=== PATIENT | female | born 2000 | race Caucasian/White ===

== ENCOUNTER 2021-03-11 17:52 | Emergency (ER) | payer SELFPAY ==
[~2021-03-11] VITALS: Ht 170.2 cm; Wt 90.9 kg
[2021-03-11] MEDS ORDERED: KETOROLAC 60 MG/2 ML VIAL. IM ONE (19:00)
--- NOTE | 2021-03-11 20:22 | RAD ---
XR EXAM OF ANKLE_LEFT 3V, XR LT TIBIA + FIBULA 03/11/2021 7:42 PM INDICATION: Fall with bilateral swelling and pain COMPARISON: None available. TECHNIQUE: 3 views of the left ankle and 2 views of the left tibia and fibula are provided. FINDINGS/ IMPRESSION: Extensive lateral ankle soft tissue swelling. There is no acute fracture or dislocation. Joint spaces are maintained. Bone mineralization is within normal limits. There is no soft tissue gas or osseous erosion. No radiopaque foreign body. Electronically signed by: Julia Agustin MD (03/11/2021 8:20 PM) [facility]
--- NOTE | 2021-03-11 20:32 | PHYS DOC ---
Past Medical History Past Surgical History: No Surgical History Smoking Status: Current Every Day Smoker Additional Information: VAPES Alcohol Use: Rarely General Adult EDM: Chief Complaint: ANKLE PROBLEM HPI: HPI: Patient is a 20 year old female who presents with left ankle injury. Patient rates her pain 10/10 nonradiating. She states she was walking on the stairs, when she lost her footing and heard her ankle "crack." Patient has never injured the ankle previously. She was unable to ambulate after the injury. Patient denies head trauma, loss of consciousness, any other injury. Review of Systems: Review of Systems: ROS negative except as mentioned in HPI. Heart Score: C/O Chest Pain: No Current Medications: Current Medications Medications (Trade) Dose Ordered Sig/Donis Start Time Stop Time Status Last Admin Dose Admin Ketorolac Tromethamine (Toradol Im) 60 mg 1X ONCE 03/11/21 19:00 03/11/21 19:01 DC 03/11/21 18:38 60 MG Allergies: Allergies: Allergies Coded Allergies Type Severity Reaction Last Updated Verified No Known Drug Allergies 03/11/21 No Physical Exam: PE: Constitutional: Well developed, well nourished, no acute distress, non-toxic appearance. HENT: Normocephalic, atraumatic, bilateral external ears normal, oropharynx moist, no oral exudates, nose without deformity or discharge. Eyes: PERRLA, EOMI, conjunctiva normal, no discharge. Neck: Normal range of motion, no step-offs, no midline tenderness. Cardiovascular: Heart rate regular rhythm, no murmur. Lungs & Thorax: Bilateral breath sounds clear to auscultation. Skin: Warm, dry, no erythema, no rash, no abrasion, no laceration. Back: No step-offs, no midline tenderness, no CVA tenderness. Extremities: Left ankle with significant lateral malleolar swelling and ecchymosis, neurovascular intact, active and passive range of motion limited secondary to pain. Extremities otherwise no tenderness, no cyanosis, no clubbing, ROM intact, no edema. Neurologic: Alert and oriented x4, no focal deficits noted. Current Patient Data: Labs: Laboratory Tests Test 03/11/21 19:19 POC Urine HCG, Qualitative Hcg negative (Negative) Vital Signs: Vital Signs Date Time Temp Pulse Resp B/P (MAP) Pulse Ox O2 Delivery O2 Flow Rate FiO2 03/11/21 17:56 98.8 110 20 122/85 (97) 96 Room Air 98.8 2031: HR 96 on monitor. Radiology/Procedures: Radiology/Procedures: XR EXAM OF ANKLE_LEFT 3V, XR LT TIBIA + FIBULA 03/11/2021 7:42 PM INDICATION: Fall with bilateral swelling and pain COMPARISON: None available. TECHNIQUE: 3 views of the left ankle and 2 views of the left tibia and fibula are provided. FINDINGS/ IMPRESSION: Extensive lateral ankle soft tissue swelling. There is no acute fracture or dislocation. Joint spaces are maintained. Bone mineralization is within normal limits. There is no soft tissue gas or osseous erosion. No radiopaque foreign body. Electronically signed by: Julia Agustin MD (03/11/2021 8:20 PM) [facility] Course & Med Decision Making: Course & Med Decision Making Pertinent Labs and Imaging studies reviewed. (See chart for details) Using [place] ankle rule, x-ray images ordered to evaluate for fracture or dislocation. No fracture or dislocation are seen on plain films at this time. Patient will be placed in a walking boot and given contact information for orthopedic follow- up. Patient understands and is agreeable to discharge plan. Dragon Disclaimer: Lindsey Shell Disclaimer: This electronic medical record was generated, in whole or in part, using a voice recognition dictation system. Departure Departure Impression: Primary Impression: Sprain of unspecified ligament of left ankle, initial encounter Disposition: HOME / SELF CARE / HOMELESS Condition: STABLE Referrals: NO PCP (PCP) NICOLE LIEBERMAN DPMohit Patient Instructions: Ankle Sprain, [id number], RICE - Routine Care for Injuries, [id number] Additional Instructions: You may take a maximum of 800mg ibuprofen every 6 hours as needed for pain and inflammation. If this is inadequate, you may alternate between up to 800mg ibuprofen and 650mg acetaminophen every 4 hours. You can make an appointment with Dr. Lieberman for further evaluation and management if your pain does not improve. Please return to the emergency department if your symptoms worsen, you develop new symptoms or your pain is not controlled at home. JESSIKA MENA Mar 11, 2021 20:32
[2021-03-11 20:50] VITALS: BP 130/85
== END 2021-03-11 20:53 | disposition home or self-care (01) ==
LOC: ER 17:52
DX: S93.402A Sprain of unspecified ligament of left ankle, initial encounter (principal); X50.9XXA Other and unspecified overexertion or strenuous movements or postures, initial encounter; Y93.01 Activity, walking, marching and hiking; Y92.89 Other specified places as the place of occurrence of the external cause; Y99.8 Other external cause status
CPT/HCPCS: 73590; 73610; 81025; 96372; 99284; J1885